=== PATIENT | male | born 1955 | race Caucasian/White ===

== ENCOUNTER 2018-05-18 07:10 | Emergency (ER) | payer MEDICARE, OTHER ==
[~2018-05-18] VITALS: Ht 167.6 cm; Wt 77.1 kg
[2018-05-18 07:13] VITALS: BP 136/93
[2018-05-18] MEDS ORDERED: oxyCODONE HCL/Acetaminophen 5/325mg ORAL ONE (07:15)
[2018-05-18] MEDS ORDERED: LISINOPRIL2.5 MG ORAL (07:16)
[2018-05-18] MEDS ORDERED: BRETHINE5 MG ORAL (07:16)
[2018-05-18] MEDS ORDERED: LABETALOL HCL100 MG ORAL (07:16)
[2018-05-18] MEDS ORDERED: CATAPRES0.1 MG ORAL (07:16)
[2018-05-18] MEDS ORDERED: GLIPIZIDE5 MG ORAL (07:16)
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
--- NOTE | 2018-05-18 08:51 | Diagnostic Imaging Report ---
Indication: Pain, status post fall Technique: 2 views of the right tibia and fibula Comparison: none Findings: There is an oblique fracture of the proximal fibular diaphysis. This is distracted by about 5 mm, otherwise minimally displaced. No associated tibial fracture demonstrated. No definite ankle fracture Impression: Positive for proximal fibular shaft fracture
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
[2018-05-18] MEDS ORDERED: TYLENOL325 MG ORAL (10:42)
[2018-05-18] MEDS ORDERED: TRAMADOL HCL50 MG ORAL (10:42)
[2018-05-18] MEDS ORDERED: IBUPROFEN600 MG ORAL (10:42)
[2018-05-18 10:47] VITALS: BP 132/89
[2018-05-18 11:14] VITALS: BP 132/89
== END 2018-05-18 11:16 | disposition home or self-care (01) ==
LOC: EDBD 07:10 → EMR 07:46
DX: S82.441A Displaced spiral fracture of shaft of right fibula, initial encounter for closed fracture (principal); M79.662 Pain in left lower leg; I10 Essential (primary) hypertension; E11.9 Type 2 diabetes mellitus without complications; X58.XXXA Exposure to other specified factors, initial encounter; Y93.9 Activity, unspecified; Y92.9 Unspecified place or not applicable; Y99.9 Unspecified external cause status; Z72.0 Tobacco use
CPT/HCPCS: 82962; 99284